=== PATIENT | male | born 1955 | race Caucasian/White ===

== ENCOUNTER → 2016-08-02 | Outpatient (CLI) | payer OTHER ==
[2014-01-12 14:26] VITALS: BP 115/69
[~2016-08-02] MED LIST: ESCI10TA PO; IPRA4AER IH; PALI9TAB PO; VENTOLIN HFA18 GM INH
--- NOTE | 2016-08-02 16:35 | RAD ---
Deep Doppler renal ultrasound, 08/02/2016: History: Hypertension Duplex evaluation of the main main renal arteries was performed including grayscale, color-flow and spectral Doppler analysis. On the right there is a borderline elevated peak systolic velocity 182 cm/s in the mid renal artery. The Doppler waveform at and distal to this level demonstrates a good systolic upstroke. No parvus/tardus phenomena is seen to suggest significant stenosis. The peak systolic velocity in the left renal artery is 128 cm/s. The renal artery to aortic velocity ratio on the right is 2.4 and on the left is 1.7. These values are in the normal range. The right kidney measures 11.5 cm in length while the left kidney measures 11.9 cm. IMPRESSION: No duplex findings to suggest high-grade renal artery stenosis.
== END | disposition home or self-care (01) ==
LOC: US 15:23
PROVIDERS: ATTEND Family Medicine
DX: I10 Essential (primary) hypertension (principal)
CPT/HCPCS: 93975

== ENCOUNTER 2016-09-05 14:51 | Inpatient (IN) | payer MEDICAID, OTHER ==
[~2016-09-05] VITALS: Ht 180.3 cm; Wt 75.4 kg
[2016-09-05 15:25] LABS: BILIRUBIN,URINE NEGATIVE (NEG); GLUCOSE,URINE NEGATIVE (NEG); NITRITE,URINE NEGATIVE (NEG); PROTEIN,URINE NEGATIVE (NEG-TRACE)
[2016-09-05] MEDS: NITROGLYCERIN SUBLINGUAL 0.4 MG BOTTLE OF 25. SL PRN ×3 (15:25→15:47)
--- NOTE | 2016-09-05 15:29 | ED.ADGEN ---
Past Medical History Past Medical History: Constipation, COPD, Depression, High Cholesterol, Hypertension, Schizophrenia Past Surgical History: Other Additional Past Surgical Histo: CARDIAC STENTS Additional Information: SMOKES 6 CIGS A DAY Alcohol Use: Sober Drug Use: None Adult General Chief Complaint Chief Complaint: ABDOMINAL PAIN HPI HPI Patient is a 61 year old male presents emergency department complaining of chest pain. The patient states that the patient starts underneath the sternum and radiates under both breasts. Patient does have a history of COPD and a previous NM in 2014. He has had his Plavix and aspirin today. He did have some associated dyspnea as well as nausea and vomiting today with the pain. Patient has tried antacids without any relief. He describes it as a "sharp intense" pain. Review of Systems Review of Systems Constitutional: Denies fever or chills. [] Eyes: Denies change in visual acuity. [] HENT: Denies nasal congestion or sore throat. [] Respiratory: Denies cough or shortness of breath. [] Cardiovascular: Denies chest pain or edema. [] GI: Denies abdominal pain, nausea, vomiting, bloody stools or diarrhea. [] : Denies dysuria. [] Musculoskeletal: Denies back pain or joint pain. [] Integument: Denies rash. [] Neurologic: Denies headache, focal weakness or sensory changes. [] Endocrine: Denies polyuria or polydipsia. [] Lymphatic: Denies swollen glands. [] Psychiatric: Denies depression or anxiety. [] Current Medications Current Medications Current Medications Medications (Trade) Dose Ordered Sig/Cuco Start Time Stop Time Status Last Admin Dose Admin Albuterol/ Ipratropium (Duoneb) 3 ml 1X ONCE 09/05/16 16:30 09/05/16 16:31 09/05/16 16:13 3 ML Heparin Sodium (Porcine) 3950 unit 3,950 unit 1X ONCE 09/05/16 16:30 09/05/16 16:31 09/05/16 16:13 3,950 UNIT Heparin Sodium/ Dextrose 500 ml @ 0 mls/hr 1X ONCE 09/05/16 16:30 09/05/16 16:31 09/05/16 16:17 15.8 MLS/HR Nitroglycerin (Nitrostat) 0.4 mg PRN Q5MIN PRN 09/05/16 15:30 09/05/16 15:47 0.4 MG Sodium Chloride (Iv Sodium Chloride 0.9% 1000ml Bag) 1,000 ml @ 1,000 mls/hr Q1H 09/05/16 15:45 09/05/16 16:44 09/05/16 15:33 1,000 MLS/HR Allergies Allergies Allergies Coded Allergies Type Severity Reaction Last Updated Verified No Known Drug Allergies 01/07/14 No Physical Exam Physical Exam Constitutional: Well developed, well nourished, mild to moderate acute distress , non-toxic appearance. [] HENT: Normocephalic, atraumatic, bilateral external ears normal, oropharynx moist, no oral exudates, nose normal. [] Eyes: PERRLA, EOMI, conjunctiva normal, no discharge. [] Neck: Normal range of motion, no tenderness, supple, no stridor. [] Cardiovascular:Heart rate regular rhythm, no murmur [] Lungs & Thorax: Bilateral breath sounds coarse with scattered wheezing [] Abdomen: Bowel sounds normal, soft, no tenderness, no masses, no pulsatile masses. [] Skin: Warm, dry, no erythema, no rash. [] Back: No tenderness, no CVA tenderness. [] Extremities: No tenderness, no cyanosis, no clubbing, ROM intact, no edema. [] Neurologic: Alert and oriented X 3, normal motor function, normal sensory function, no focal deficits noted. [] Psychologic: Affect normal, judgement normal, mood normal. [] Current Patient Data Vital Signs Vital Signs Date Time Temp Pulse Resp B/P Pulse Ox O2 Delivery O2 Flow Rate FiO2 09/05/16 16:14 Room Air 09/05/16 15:47 56 106/59 09/05/16 15:02 97.6 16 97 97.6 Lab Values Laboratory Tests Test 09/05/16 15:00 09/05/16 15:30 Urine Collection Type Void Urine Color Yellow Urine Clarity Clear Urine pH 7.0 Urine Specific [place] 1.025 Urine Protein Negativemg/dL (NEG-TRACE) Urine Glucose (UA) Negativemg/dL (NEG) Urine Ketones (Stick) Negativemg/dL (NEG) Urine Blood Negative (NEG) Urine Nitrite Negative (NEG) Urine Bilirubin Negative (NEG) Urine Urobilinogen Dipstick 1.0mg/dL (0.2 mg/dL) Urine Leukocyte Esterase Trace (NEG) Urine RBC Rare/HPF (0-2) Urine WBC Rare/HPF (0-4) Urine Squamous Epithelial Cells Occ/LPF Urine Bacteria 0/HPF (0-FEW) Urine Mucus Marked/LPF Urine Opiates Screen Neg (NEG) Urine Methadone Screen Neg (NEG) Urine Barbiturates Neg (NEG) Urine Phencyclidine Screen Neg (NEG) Urine Amphetamine/Methamphetamine Neg (NEG) Urine Benzodiazepines Screen Neg (NEG) Urine Cocaine Screen Neg (NEG) Urine Cannabinoids Screen Neg (NEG) Urine Ethyl Alcohol Neg (NEG) White Blood Count 13.1x10^3/uL (4.0-11.0) H Red Blood Count 4.11x10^6/uL (4.30-5.70) L Hemoglobin 9.6g/dL (13.0-17.5) L Hematocrit 30.4% (39.0-53.0) L Mean Corpuscular Volume 74fL (79-100) L Mean Corpuscular Hemoglobin 24pg (25-35) L Mean Corpuscular Hemoglobin Concent 32g/dL (31-37) Red Cell Distribution Width 17.9% (11.5-14.5) H Platelet Count 296x10^3/uL (140-400) Neutrophils (%) (Auto) 82% (31-73) H Lymphocytes (%) (Auto) 8% (24-48) L Monocytes (%) (Auto) 10% (0-9) H Eosinophils (%) (Auto) 0% (0-3) Basophils (%) (Auto) 0% (0-3) Neutrophils # (Auto) 10.7x10^3uL (1.8-7.7) H Lymphocytes # (Auto) 1.0x10^3/uL (1.0-4.8) Monocytes # (Auto) 1.2x10^3/uL (0.0-1.1) H Eosinophils # (Auto) 0.1x10^3/uL (0.0-0.7) Basophils # (Auto) 0.1x10^3/uL (0.0-0.2) Prothrombin Time 12.4SEC (11.7-14.0) Prothrombin Time INR 1.0 (0.8-1.1) PTT 32SEC (24-38) Sodium Level 134mmol/L (136-145) L Potassium Level 4.1mmol/L (3.5-5.1) Chloride Level 101mmol/L (98-107) Carbon Dioxide Level 23mmol/L (21-32) Anion Gap 10 (6-14) Blood Urea Nitrogen 13mg/dL (8-26) Creatinine 0.9mg/dL (0.7-1.3) Estimated GFR (Cockcroft-Gault) 86.1 BUN/Creatinine Ratio 14 (6-20) Glucose Level 106mg/dL (70-99) H Calcium Level 8.4mg/dL (8.5-10.1) L Total Bilirubin 0.3mg/dL (0.2-1.0) Aspartate Amino Transferase (AST) 14U/L (15-37) L Alanine Aminotransferase (ALT) 18U/L (16-63) Alkaline Phosphatase 75U/L (46-116) Creatine Kinase 97U/L (39-308) Creatine Kinase MB (Mass) 2.6ng/mL (0.0-3.6) Creatine Kinase MB Relative Index 2.7% (0-4) Troponin I Quantitative < 0.017ng/mL (0.000-0.055) ND-Rvt-M-Type Natriuretic Peptide 374pg/mL (0-124) H Total Protein 6.9g/dL (6.4-8.2) Albumin 3.2g/dL (3.4-5.0) L Albumin/Globulin Ratio 0.9 (1.0-1.7) L Lipase 193U/L (73-393) Laboratory Tests 09/05/16 15:30 Laboratory Tests 09/05/16 15:30 EKG EKG EKG interpreted by mo, normal sinus rhythm, 59 bpm, no ST segment elevation, normal axis, does have ischemic morphology with inverted T waves in V1 through V4 which may be consistent with his previous LAD occlusion and NM. [] Radiology/Procedures Radiology/Procedures EXAM: Chest, single view. HISTORY: Chest pain. COMPARISON: 01/07/2014. FINDINGS: Frontal views of the chest are obtained. There is severe right greater than left upper lobe predominant bullous emphysema. There is stable linear right perihilar opacity likely due to scarring. There is stable mild cardiomegaly. There is no effusion or pneumothorax. IMPRESSION: 1. Severe right greater left apical predominant bullous emphysema with suspected stable right midlung pleural parenchymal scarring. 2. Mild cardiomegaly. DICTATED and SIGNED BY: ERNIE DIAZ MD DATE: 09/05/16 1538 CC: SHANNAN ARIAS MD; ZAINAB SONI ~[] Course & Med Decision Making Course & Med Decision Making Pertinent Labs and Imaging studies reviewed. (See chart for details) 1530 - Spoke with Dr Child who recommends treating and admitting for unstable angina including heparin gtt. 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 1535 - cp has gone from 6/10 down to 3/10 after 1 ntg 1550 - ntg #2 reduced pain to 2/10; ntg #3 reduced pain to 1/10 1620 - Reassuring work up this far. Call to Dr. Gomez regarding admission Dragon Disclaimer Dragon Disclaimer This electronic medical record was generated, in whole or in part, using a voice recognition dictation system. SHANNAN ARIAS MD Sep 05, 2016 15:29
[2016-09-05 15:30] LABS: BARBITURATES NEG (NEG); BENZODIAZEPINES NEG (NEG); CANNABINOIDS NEG (NEG); COCAINE NEG (NEG); METHADONE NEG (NEG); OPIATES NEG (NEG); PHENCYCLIDINE NEG (NEG)
[2016-09-05 15:33] LABS: BACTERIA,URINE 0 /HPF (0-FEW); RBC,URINE RARE /HPF (0-2); SQUAMOUS EPITHELIAL CELL,UR OCC /LPF; WBC,URINE RARE /HPF (0-4)
[2016-09-05 15:35] LABS: ETHANOL, URINE NEG (NEG)
--- NOTE | 2016-09-05 15:42 | RAD ---
EXAM: Chest, single view. HISTORY: Chest pain. COMPARISON: 01/07/2014. FINDINGS: Frontal views of the chest are obtained. There is severe right greater than left upper lobe predominant bullous emphysema. There is stable linear right perihilar opacity likely due to scarring. There is stable mild cardiomegaly. There is no effusion or pneumothorax. IMPRESSION: 1. Severe right greater left apical predominant bullous emphysema with suspected stable right midlung pleural parenchymal scarring. 2. Mild cardiomegaly.
[2016-09-05] MEDS ORDERED: IV NORMAL SALINE 1000ML BAG 1,000 ML IV SCH (15:45)
[2016-09-05 15:49] LABS: BASO # 0.1 x10^3/uL (0.0-0.2); BASO % 0 % (0-3); EOS % 0 % (0-3); HEMATOCRIT 30.4 % (39.0-53.0); HEMOGLOBIN 9.6 g/dL (13.0-17.5); LYMPH % 8 % (24-48); MEAN CORPUSCULAR HEMOGLOBIN 24 pg (25-35); MEAN CORPUSCULAR HGB CONC 32 g/dL (31-37); MEAN CORPUSCULAR VOLUME 74 fL (79-100); MONO % 10 % (0-9); NEUT % 82 % (31-73); PLATELET COUNT 296 x10^3/uL (140-400); RED BLOOD COUNT 4.11 x10^6/uL (4.30-5.70); RED CELL DISTRIBUTION WIDTH 17.9 % (11.5-14.5); WHITE BLOOD COUNT 13.1 x10^3/uL (4.0-11.0)
[2016-09-05 15:56] LABS: PROTHROMBIN TIME PATIENT 12.4 SEC (11.7-14.0)
[2016-09-05 16:04] LABS: CALCIUM 8.4 mg/dL (8.5-10.1); CREATININE 0.9 mg/dL (0.7-1.3); GFR 86.1; POTASSIUM 4.1 mmol/L (3.5-5.1)
[2016-09-05 16:10] LABS: ALBUMIN 3.2 g/dL (3.4-5.0); ALBUMIN/GLOBULIN RATIO 0.9 (1.0-1.7); TOTAL BILIRUBIN 0.3 mg/dL (0.2-1.0); TOTAL PROTEIN 6.9 g/dL (6.4-8.2)
[2016-09-05 16:19] LABS: CKMB INDEX 2.7 % (0-4); CKMB MASS 2.6 ng/mL (0.0-3.6)
[2016-09-05] MEDS ORDERED: IPRATRPIUM/ALBUTEROL 0.5/2.5MG 3 ML NEBU. NEB ONE (16:30)
[2016-09-05] MEDS ORDERED: HEPARIN 25,000UTS/500ML PREMIX 500 ML IV ONE (16:30)
[2016-09-05] MEDS ORDERED: ALBUTEROL SULFATE 2.5 MG/3 ML NEBU. NEB PRN ×2 (16:30→19:45)
[2016-09-05] MEDS ORDERED: ONDANSETRON PF 4 MG/2 ML VIAL. IV PRN (16:30)
[2016-09-05] MEDS ORDERED: HEPARIN for IV BOLUS 10,000 UNIT/10 ML VIAL. IV ONE (16:30)
[2016-09-05] MEDS: IV NORMAL SALINE 1000ML BAG 1,000 ML IV SCH (16:46)
[2016-09-05 17:45] VITALS: BP 124/62
--- NOTE | 2016-09-05 17:46 | EKG ---
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
[2016-09-05] MEDS ORDERED: MORPHINE SULFATE 2 MG/ML DISP.SYRIN. IV PRN (18:45)
[2016-09-05] MEDS ORDERED: LIDO:MAALOX:DONNATAL 1:1:1 15 ML SINGLE DOSE SWSW ONE (19:00)
--- NOTE | 2016-09-05 19:24 | EKG ---
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
[2016-09-05 19:45] VITALS: BP 139/68
[2016-09-05] MEDS ORDERED: ATOR20TA PO (20:34)
[2016-09-05] MEDS ORDERED: POTA20TA82 PO (20:34)
[2016-09-05] MEDS ORDERED: CLOP75TA PO (20:34)
[2016-09-05] MEDS ORDERED: ESCI10TA PO (20:34)
[2016-09-05] MEDS ORDERED: IPRA4AER IH (20:34)
[2016-09-05] MEDS ORDERED: AMIO200T2 PO (20:34)
[2016-09-05] MEDS ORDERED: ASPI325T70 PO (20:34)
[2016-09-05] MEDS ORDERED: FLUT1DIS3 IH (20:34)
[2016-09-05] MEDS ORDERED: POLY17PO5 PO (20:34)
[2016-09-05] MEDS ORDERED: ACET650S19 PO (20:34)
[2016-09-05] MEDS: IPRATRPIUM/ALBUTEROL 0.5/2.5MG 3 ML NEBU. NEB SCH (20:59)
[2016-09-05] MEDS ORDERED: NON FORMULARY ITEM (Ipratropium/Albuterol Sulfate (Combivent Respimat Inhal) 1 INH) IH SCH (21:00)
--- NOTE | 2016-09-05 21:44 | HP ---
ADMIT DATE: 09/05/2016 CHIEF COMPLAINT: Abdominal pain and chest pain. HISTORY OF PRESENT ILLNESS: The patient is a pleasant middle-aged male, who resides at [facility] and ____ apparently is on a Psych Unit, though he does have schizophrenia, basically presented today with abdominal pain and chest pain, rates it 12/13. He tried increasing his home meds, but that was not working. I discussed the case with the ER physician. The patient apparently does have coronary artery disease, has 2 stents. I am going to go ahead and admit him and check serial enzymes, serial EKGs and consult cardiology. PAST MEDICAL HISTORY: Schizophrenia, hypertension, coronary artery disease with 2 stents, depression, COPD, constipation and tobacco abuse. ALLERGIES: None. FAMILY HISTORY: Coronary artery disease. SOCIAL HISTORY: He lives in a facility. He smokes 6 cigarettes a day. He does not drink or take drugs. MEDICATIONS: Reviewed, please refer to the MRAD. REVIEW OF SYSTEMS: GENERAL: No history of weight change, weakness or fevers. SKIN: No bruising, hair changes or rashes. EYES: No blurred, double or loss of vision. NOSE AND THROAT: No history of nosebleeds, hoarseness or sore throat. HEART: He complaints of chest pain. LUNGS: Denies cough, hemoptysis, wheezing or shortness of breath. GASTROINTESTINAL: Denies changes in appetite, nausea, vomiting, diarrhea or constipation. GENITOURINARY: No history of frequency, urgency, hesitancy or nocturia. NEUROLOGIC: Denies history of numbness, tingling, tremor or weakness. PSYCHIATRIC: No history of panic, anxiety or depression. ENDOCRINE: No history of heat or cold intolerance, polyuria or polydipsia. EXTREMITIES: Denies muscle weakness, joint pain, pain on walking or stiffness. PHYSICAL EXAMINATION: VITAL SIGNS: Temperature afebrile, pulse 68, respirations 21, blood pressure 144/91. GENERAL: He is alert, cooperative. HEART: Normal S1, S2. LUNGS: Clear. ABDOMEN: Soft. EXTREMITIES: No edema. SKIN: No rashes. PSYCHIATRIC: He is anxious. VASCULAR: Good capillary refill. ENDOCRINE: No thyromegaly. LYMPHATICS: No cervical nodes. HEMATOPOIETIC: No bruising. LABORATORY DATA: Urinalysis negative. Troponin is 0. White count 13, hemoglobin 9, platelets 296. Electrolytes: Sodium 134, potassium 4.1, chloride 101, bicarbonate 23, BUN 13, creatinine 0.9, glucose 106. ASSESSMENT AND PLAN: Chest pain, rule out recurrent coronary artery disease. The patient has been admitted. We will check serial enzymes, serial EKGs, echocardiogram, consult cardiology. Suspect will need a stress test tomorrow. For now, we will give him daily aspirin, resume his home medicines. PROGNOSIS: Guarded. CARY GRAY DO DR: REGINE/melida JOB#: [id number] / [id number]
[2016-09-05] MEDS: risperiDONE 1 MG TABLET. PO SCH (22:40)
[2016-09-05 23:45] VITALS: BP 112/57
[2016-09-06] MEDS: IV NORMAL SALINE 1000ML BAG 1,000 ML IV SCH ×2 (01:16→08:25)
[2016-09-06] MEDS ORDERED: HEPARIN for IV BOLUS 10,000 UNIT/10 ML VIAL. IV PRN (02:00)
[2016-09-06] MEDS: HEPARIN 25,000UTS/500ML PREMIX 500 ML IV PRN ×2 (02:32→17:35)
[2016-09-06 03:05] VITALS: BP 116/62
[2016-09-06 06:38] LABS: HEMATOCRIT 27.7 % (39.0-53.0); HEMOGLOBIN 8.8 g/dL (13.0-17.5); RED BLOOD COUNT 3.69 x10^6/uL (4.30-5.70); WHITE BLOOD COUNT 9.6 x10^3/uL (4.0-11.0)
[2016-09-06 07:59] VITALS: BP 115/55
[2016-09-06] MEDS ORDERED: ONDANSETRON PF 4 MG/2 ML VIAL. IV PRN (08:13)
[2016-09-06] MEDS ORDERED: POLYETHYLENE GLYCOL 3350 17 GM PACKET. PO PRN (08:15)
[2016-09-06] MEDS ORDERED: ACETAMINOPHEN 500 MG TABLET PO PRN (08:15)
[2016-09-06] MEDS: IPRATRPIUM/ALBUTEROL 0.5/2.5MG 3 ML NEBU. NEB SCH ×4 (08:18→19:56)
[2016-09-06] MEDS: POTASSIUM CHLORIDE 20 MEQ TABLET.ER. PO SCH ×4 (09:00→16:56)
[2016-09-06] MEDS: BUDESONIDE 0.5 MG/2 ML NEBU. NEB SCH ×2 (09:00→19:56)
[2016-09-06] MEDS ORDERED: NON FORMULARY ITEM (Fluticasone/Salmeterol (Advair 250-50 Diskus) 1 PUFF) IH SCH (09:00)
[2016-09-06] MEDS ORDERED: POTASSIUM CHLORIDE 20 MEQ TABLET.ER. PO ONE ×2 (09:00)
[2016-09-06] MEDS ORDERED: NON FORMULARY ITEM (Ipratropium/Albuterol Sulfate (Combivent Respimat Inhal) 2 INH) IH SCH (09:00)
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
[2016-09-06] MEDS ORDERED: SULFUR HEXAFLUORIDE MICROSPHR 25 MG VIAL. IVP ONE ×2 (11:08→11:45)
--- NOTE | 2016-09-06 11:23 | PDOC ---
PROGRESS NOTES Chief Complaint Chief Complaint 1. chest pain, atypical 2. CAD with previous STEMI occluded LAD with 2 RUY to LAD 3. PAF on amiodarone 4. hypertension 5. HLD 6. paranoid schizophrenia History of Present Illness History of Present Illness Still some chest pains and points to bilateral ribs Heparin gt running Trops neg VS ok PLAnned to TTE then MPI today PLAN: TTE and mPI Rsume home meds Dw pt and RN Vitals Vitals Vital Signs Date Time Temp Pulse Resp B/P Pulse Ox O2 Delivery O2 Flow Rate FiO2 09/06/16 08:19 95 Room Air 09/06/16 07:59 97.8 70 20 115/55 97.8 Physical Exam General: Alert, Cooperative Heart: Regular rate, Normal S1, Normal S2 Lungs: Clear, Other Abdomen: Normal bowel sounds, Soft Extremities: No edema, Normal pulses Labs LABS Laboratory Tests Test 09/05/16 15:00 09/05/16 15:30 09/05/16 21:00 09/06/16 01:10 Urine Collection Type Void Urine Color Yellow Urine Clarity Clear Urine pH 7.0 Urine Specific [place] 1.025 Urine Protein Negativemg/dL (NEG-TRACE) Urine Glucose (UA) Negativemg/dL (NEG) Urine Ketones (Stick) Negativemg/dL (NEG) Urine Blood Negative (NEG) Urine Nitrite Negative (NEG) Urine Bilirubin Negative (NEG) Urine Urobilinogen Dipstick 1.0mg/dL (0.2 mg/dL) Urine Leukocyte Esterase Trace (NEG) Urine RBC Rare/HPF (0-2) Urine WBC Rare/HPF (0-4) Urine Squamous Epithelial Cells Occ/LPF Urine Bacteria 0/HPF (0-FEW) Urine Mucus Marked/LPF Urine Opiates Screen Neg (NEG) Urine Methadone Screen Neg (NEG) Urine Barbiturates Neg (NEG) Urine Phencyclidine Screen Neg (NEG) Urine Amphetamine/Methamphetamine Neg (NEG) Urine Benzodiazepines Screen Neg (NEG) Urine Cocaine Screen Neg (NEG) Urine Cannabinoids Screen Neg (NEG) Urine Ethyl Alcohol Neg (NEG) White Blood Count 13.1x10^3/uL (4.0-11.0) Red Blood Count 4.11x10^6/uL (4.30-5.70) Hemoglobin 9.6g/dL (13.0-17.5) Hematocrit 30.4% (39.0-53.0) Mean Corpuscular Volume 74fL (79-100) Mean Corpuscular Hemoglobin 24pg (25-35) Mean Corpuscular Hemoglobin Concent 32g/dL (31-37) Red Cell Distribution Width 17.9% (11.5-14.5) Platelet Count 296x10^3/uL (140-400) Neutrophils (%) (Auto) 82% (31-73) Lymphocytes (%) (Auto) 8% (24-48) Monocytes (%) (Auto) 10% (0-9) Eosinophils (%) (Auto) 0% (0-3) Basophils (%) (Auto) 0% (0-3) Neutrophils # (Auto) 10.7x10^3uL (1.8-7.7) Lymphocytes # (Auto) 1.0x10^3/uL (1.0-4.8) Monocytes # (Auto) 1.2x10^3/uL (0.0-1.1) Eosinophils # (Auto) 0.1x10^3/uL (0.0-0.7) Basophils # (Auto) 0.1x10^3/uL (0.0-0.2) Prothrombin Time 12.4SEC (11.7-14.0) Prothromb Time International Ratio 1.0 (0.8-1.1) Activated Partial Thromboplast Time 32SEC (24-38) Sodium Level 134mmol/L (136-145) Potassium Level 4.1mmol/L (3.5-5.1) Chloride Level 101mmol/L (98-107) Carbon Dioxide Level 23mmol/L (21-32) Anion Gap 10 (6-14) Blood Urea Nitrogen 13mg/dL (8-26) Creatinine 0.9mg/dL (0.7-1.3) Estimated GFR (Cockcroft-Gault) 86.1 BUN/Creatinine Ratio 14 (6-20) Glucose Level 106mg/dL (70-99) Calcium Level 8.4mg/dL (8.5-10.1) Total Bilirubin 0.3mg/dL (0.2-1.0) Aspartate Amino Transf (AST/SGOT) 14U/L (15-37) Alanine Aminotransferase (ALT/SGPT) 18U/L (16-63) Alkaline Phosphatase 75U/L (46-116) Creatine Kinase 97U/L (39-308) Creatine Kinase MB (Mass) 2.6ng/mL (0.0-3.6) Creatine Kinase MB Relative Index 2.7% (0-4) Troponin I Quantitative < 0.017ng/mL (0.000-0.055) < 0.017ng/mL (0.000-0.055) SU-Hmd-I-Type Natriuretic Peptide 374pg/mL (0-124) Total Protein 6.9g/dL (6.4-8.2) Albumin 3.2g/dL (3.4-5.0) Albumin/Globulin Ratio 0.9 (1.0-1.7) Lipase 193U/L (73-393) Heparin Anti-Xa Act, Unfractionated 0.15IU/mL (0.30-0.70) Test 09/06/16 04:15 09/06/16 04:25 09/06/16 06:45 Troponin I Quantitative < 0.017ng/mL (0.000-0.055) White Blood Count 9.6x10^3/uL (4.0-11.0) Red Blood Count 3.69x10^6/uL (4.30-5.70) Hemoglobin 8.8g/dL (13.0-17.5) Hematocrit 27.7% (39.0-53.0) Mean Corpuscular Volume 75fL (79-100) Mean Corpuscular Hemoglobin 24pg (25-35) Mean Corpuscular Hemoglobin Concent 32g/dL (31-37) Red Cell Distribution Width 18.0% (11.5-14.5) Platelet Count 247x10^3/uL (140-400) Heparin Anti-Xa Act, Unfractionated 0.39IU/mL (0.30-0.70) Review of Systems Review of Systems chest pains, abd pains, no n.v d Assessment and Plan Assessmemt and Plan Problems Medical Problems: (1) COPD (chronic obstructive pulmonary disease) Status: Acute (2) HTN (hypertension) Status: Acute (3) Hypertension Status: Acute (4) Schizophrenia Status: Acute (5) Unstable angina Status: Acute Problems: Comment Review of Relevant I have reviewed the following items parviz (where applicable) has been applied. Labs Laboratory Tests Test 09/05/16 15:00 09/05/16 15:30 09/05/16 21:00 09/06/16 01:10 Urine Collection Type Void Urine Color Yellow Urine Clarity Clear Urine pH 7.0 Urine Specific [place] 1.025 Urine Protein Negativemg/dL (NEG-TRACE) Urine Glucose (UA) Negativemg/dL (NEG) Urine Ketones (Stick) Negativemg/dL (NEG) Urine Blood Negative (NEG) Urine Nitrite Negative (NEG) Urine Bilirubin Negative (NEG) Urine Urobilinogen Dipstick 1.0mg/dL (0.2 mg/dL) Urine Leukocyte Esterase Trace (NEG) Urine RBC Rare/HPF (0-2) Urine WBC Rare/HPF (0-4) Urine Squamous Epithelial Cells Occ/LPF Urine Bacteria 0/HPF (0-FEW) Urine Mucus Marked/LPF Urine Opiates Screen Neg (NEG) Urine Methadone Screen Neg (NEG) Urine Barbiturates Neg (NEG) Urine Phencyclidine Screen Neg (NEG) Urine Amphetamine/Methamphetamine Neg (NEG) Urine Benzodiazepines Screen Neg (NEG) Urine Cocaine Screen Neg (NEG) Urine Cannabinoids Screen Neg (NEG) Urine Ethyl Alcohol Neg (NEG) White Blood Count 13.1x10^3/uL (4.0-11.0) Red Blood Count 4.11x10^6/uL (4.30-5.70) Hemoglobin 9.6g/dL (13.0-17.5) Hematocrit 30.4% (39.0-53.0) Mean Corpuscular Volume 74fL (79-100) Mean Corpuscular Hemoglobin 24pg (25-35) Mean Corpuscular Hemoglobin Concent 32g/dL (31-37) Red Cell Distribution Width 17.9% (11.5-14.5) Platelet Count 296x10^3/uL (140-400) Neutrophils (%) (Auto) 82% (31-73) Lymphocytes (%) (Auto) 8% (24-48) Monocytes (%) (Auto) 10% (0-9) Eosinophils (%) (Auto) 0% (0-3) Basophils (%) (Auto) 0% (0-3) Neutrophils # (Auto) 10.7x10^3uL (1.8-7.7) Lymphocytes # (Auto) 1.0x10^3/uL (1.0-4.8) Monocytes # (Auto) 1.2x10^3/uL (0.0-1.1) Eosinophils # (Auto) 0.1x10^3/uL (0.0-0.7) Basophils # (Auto) 0.1x10^3/uL (0.0-0.2) Prothrombin Time 12.4SEC (11.7-14.0) Prothromb Time International Ratio 1.0 (0.8-1.1) Activated Partial Thromboplast Time 32SEC (24-38) Sodium Level 134mmol/L (136-145) Potassium Level 4.1mmol/L (3.5-5.1) Chloride Level 101mmol/L (98-107) Carbon Dioxide Level 23mmol/L (21-32) Anion Gap 10 (6-14) Blood Urea Nitrogen 13mg/dL (8-26) Creatinine 0.9mg/dL (0.7-1.3) Estimated GFR (Cockcroft-Gault) 86.1 BUN/Creatinine Ratio 14 (6-20) Glucose Level 106mg/dL (70-99) Calcium Level 8.4mg/dL (8.5-10.1) Total Bilirubin 0.3mg/dL (0.2-1.0) Aspartate Amino Transf (AST/SGOT) 14U/L (15-37) Alanine Aminotransferase (ALT/SGPT) 18U/L (16-63) Alkaline Phosphatase 75U/L (46-116) Creatine Kinase 97U/L (39-308) Creatine Kinase MB (Mass) 2.6ng/mL (0.0-3.6) Creatine Kinase MB Relative Index 2.7% (0-4) Troponin I Quantitative < 0.017ng/mL (0.000-0.055) < 0.017ng/mL (0.000-0.055) DK-Yfp-A-Type Natriuretic Peptide 374pg/mL (0-124) Total Protein 6.9g/dL (6.4-8.2) Albumin 3.2g/dL (3.4-5.0) Albumin/Globulin Ratio 0.9 (1.0-1.7) Lipase 193U/L (73-393) Heparin Anti-Xa Act, Unfractionated 0.15IU/mL (0.30-0.70) Test 09/06/16 04:15 09/06/16 04:25 09/06/16 06:45 Troponin I Quantitative < 0.017ng/mL (0.000-0.055) White Blood Count 9.6x10^3/uL (4.0-11.0) Red Blood Count 3.69x10^6/uL (4.30-5.70) Hemoglobin 8.8g/dL (13.0-17.5) Hematocrit 27.7% (39.0-53.0) Mean Corpuscular Volume 75fL (79-100) Mean Corpuscular Hemoglobin 24pg (25-35) Mean Corpuscular Hemoglobin Concent 32g/dL (31-37) Red Cell Distribution Width 18.0% (11.5-14.5) Platelet Count 247x10^3/uL (140-400) Heparin Anti-Xa Act, Unfractionated 0.39IU/mL (0.30-0.70) Laboratory Tests Test 09/05/16 15:00 09/05/16 15:30 09/05/16 21:00 09/06/16 01:10 Urine Collection Type Void Urine Color Yellow Urine Clarity Clear Urine pH 7.0 Urine Specific [place] 1.025 Urine Protein Negativemg/dL (NEG-TRACE) Urine Glucose (UA) Negativemg/dL (NEG) Urine Ketones (Stick) Negativemg/dL (NEG) Urine Blood Negative (NEG) Urine Nitrite Negative (NEG) Urine Bilirubin Negative (NEG) Urine Urobilinogen Dipstick 1.0mg/dL (0.2 mg/dL) Urine Leukocyte Esterase Trace (NEG) Urine RBC Rare/HPF (0-2) Urine WBC Rare/HPF (0-4) Urine Squamous Epithelial Cells Occ/LPF Urine Bacteria 0/HPF (0-FEW) Urine Mucus Marked/LPF Urine Opiates Screen Neg (NEG) Urine Methadone Screen Neg (NEG) Urine Barbiturates Neg (NEG) Urine Phencyclidine Screen Neg (NEG) Urine Amphetamine/Methamphetamine Neg (NEG) Urine Benzodiazepines Screen Neg (NEG) Urine Cocaine Screen Neg (NEG) Urine Cannabinoids Screen Neg (NEG) Urine Ethyl Alcohol Neg (NEG) White Blood Count 13.1x10^3/uL (4.0-11.0) Red Blood Count 4.11x10^6/uL (4.30-5.70) Hemoglobin 9.6g/dL (13.0-17.5) Hematocrit 30.4% (39.0-53.0) Mean Corpuscular Volume 74fL (79-100) Mean Corpuscular Hemoglobin 24pg (25-35) Mean Corpuscular Hemoglobin Concent 32g/dL (31-37) Red Cell Distribution Width 17.9% (11.5-14.5) Platelet Count 296x10^3/uL (140-400) Neutrophils (%) (Auto) 82% (31-73) Lymphocytes (%) (Auto) 8% (24-48) Monocytes (%) (Auto) 10% (0-9) Eosinophils (%) (Auto) 0% (0-3) Basophils (%) (Auto) 0% (0-3) Neutrophils # (Auto) 10.7x10^3uL (1.8-7.7) Lymphocytes # (Auto) 1.0x10^3/uL (1.0-4.8) Monocytes # (Auto) 1.2x10^3/uL (0.0-1.1) Eosinophils # (Auto) 0.1x10^3/uL (0.0-0.7) Basophils # (Auto) 0.1x10^3/uL (0.0-0.2) Prothrombin Time 12.4SEC (11.7-14.0) Prothromb Time International Ratio 1.0 (0.8-1.1) Activated Partial Thromboplast Time 32SEC (24-38) Sodium Level 134mmol/L (136-145) Potassium Level 4.1mmol/L (3.5-5.1) Chloride Level 101mmol/L (98-107) Carbon Dioxide Level 23mmol/L (21-32) Anion Gap 10 (6-14) Blood Urea Nitrogen 13mg/dL (8-26) Creatinine 0.9mg/dL (0.7-1.3) Estimated GFR (Cockcroft-Gault) 86.1 BUN/Creatinine Ratio 14 (6-20) Glucose Level 106mg/dL (70-99) Calcium Level 8.4mg/dL (8.5-10.1) Total Bilirubin 0.3mg/dL (0.2-1.0) Aspartate Amino Transf (AST/SGOT) 14U/L (15-37) Alanine Aminotransferase (ALT/SGPT) 18U/L (16-63) Alkaline Phosphatase 75U/L (46-116) Creatine Kinase 97U/L (39-308) Creatine Kinase MB (Mass) 2.6ng/mL (0.0-3.6) Creatine Kinase MB Relative Index 2.7% (0-4) Troponin I Quantitative < 0.017ng/mL (0.000-0.055) < 0.017ng/mL (0.000-0.055) PK-Kkf-F-Type Natriuretic Peptide 374pg/mL (0-124) Total Protein 6.9g/dL (6.4-8.2) Albumin 3.2g/dL (3.4-5.0) Albumin/Globulin Ratio 0.9 (1.0-1.7) Lipase 193U/L (73-393) Heparin Anti-Xa Act, Unfractionated 0.15IU/mL (0.30-0.70) Test 09/06/16 04:15 09/06/16 04:25 09/06/16 06:45 Troponin I Quantitative < 0.017ng/mL (0.000-0.055) White Blood Count 9.6x10^3/uL (4.0-11.0) Red Blood Count 3.69x10^6/uL (4.30-5.70) Hemoglobin 8.8g/dL (13.0-17.5) Hematocrit 27.7% (39.0-53.0) Mean Corpuscular Volume 75fL (79-100) Mean Corpuscular Hemoglobin 24pg (25-35) Mean Corpuscular Hemoglobin Concent 32g/dL (31-37) Red Cell Distribution Width 18.0% (11.5-14.5) Platelet Count 247x10^3/uL (140-400) Heparin Anti-Xa Act, Unfractionated 0.39IU/mL (0.30-0.70) Medications Current Medications Sodium Chloride (Iv Sodium Chloride 0.9% 1000ml Bag) 1,000 ml @ 1,000 mls/hr Q1H IV Last administered on 09/05/16 15:33; Start 09/05/16 at 15:45; Stop at 16:44; Status DC Nitroglycerin (Nitrostat) 0.4 mg PRN Q5MIN PRN SL CHEST PAIN Last administered on 09/05/16 15:47; Start 09/05/16 at 15:30 Heparin Sodium (Porcine) 3950 unit 3,950 unit 1X ONCE IV Last administered on 09/05/16 16:13; Start 09/05/16 at 16:30; Stop 09/05/16 at 16:32; Status DC Heparin Sodium/ Dextrose 500 ml @ 0 mls/hr 1X ONCE IV Last administered on 09/05 16:17; Start 09/05/16 at 16:30; Stop 09/05/16 at 16:32; Status DC Albuterol/ Ipratropium (Duoneb) 3 ml 1X ONCE NEB Last administered on 16:13; Start 09/05/16 at 16:30; Stop 09/05/16 at 16:32; Status DC Ondansetron HCl 4 mg 4 mg PRN Q8HRS PRN IV NAUSEA/VOMITING; Start 09/05/16 at 16 :30; Stop 09/06/16 at 08:16; Status DC Sodium Chloride (Iv Sodium Chloride 0.9% 1000ml Bag) 1,000 ml @ 125 mls/hr Q8H IV Last administered on 09/06/16 01:16; Start 09/05/16 at 16:25; Stop 09/06/16 at 16:24 Albuterol Sulfate (Ventolin Neb Soln) 2.5 mg RTQID PRN NEB SHORTNESS OF BREATH ; Start 09/05/16 at 16:30; Stop 09/06/16 at 16:29 Multi-Ingredient Mouthwash/Gargle (Gi Cocktail Single Dose) 15 ml 1X ONCE SWSW Last administered on 09/05/16 20:06; Start 09/05/16 at 19:00; Stop 09/05/16 at 19:01; Status DC Morphine Sulfate 2 mg PRN Q2HR PRN IV PAIN; Start 09/05/16 at 18:45 Albuterol Sulfate (Ventolin Neb Soln) 2.5 mg PRN BID PRN NEB SHORTNESS OF BREATH; Start 09/05/16 at 19:45; Stop 09/06/16 at 08:30; Status DC Non-Formulary Medication 1 inh BID IH ; Start 09/05/16 at 21:00; Status UNV Risperidone (Risperdal) 6 mg BID PO Last administered on 09/05/16 22:40; Start 09/05/16 at 21:00 Albuterol/ Ipratropium 3 ml 3 ml RTBID NEB Last administered on 09/06/16 08:18 ; Start 09/05/16 at 20:00; Stop 09/06/16 at 08:34; Status DC Heparin Sodium/ Dextrose 500 ml @ 0 mls/hr CONT PRN IV SEE I/O RECORD Last administered on 09/06/16 02:32; Start 09/06/16 at 02:00 Heparin Sodium (Porcine) (Heparin Sodium) 1,900 unit PRN Q6HRS PRN IV FOR UFH LEVEL LESS THAN 0.2 Last administered on 09/06/16 02:24; Start 09/06/16 at 02:00 Ondansetron HCl (Zofran) 4 mg PRN Q6HRS PRN IV NAUSEA/VOMITING; Start 09/06/16 at 08:13 Acetaminophen (Tylenol) 500 mg PRN Q6HRS PRN PO MILD PAIN / TEMP; Start at 08:15 Amiodarone HCl (Cordarone) 200 mg DAILY PO ; Start 09/06/16 at 09:00 Atorvastatin Calcium (Lipitor) 20 mg HS PO ; Start 09/06/16 at 21:00 Clopidogrel Bisulfate (Plavix) 75 mg DAILY PO ; Start 09/06/16 at 09:00 Escitalopram Oxalate (Lexapro) 10 mg DAILY PO ; Start 09/06/16 at 09:00 Polyethylene Glycol (miraLAX PACKET) 17 gm PRN DAILY PRN PO CONSTIPATION; Start 09/06/16 at 08:15 Non-Formulary Medication 1 puff BID IH ; Start 09/06/16 at 09:00; Status UNV Non-Formulary Medication 2 inh BID IH ; Start 09/06/16 at 09:00; Status UNV Potassium Chloride (Klor-Con) 20 meq TIDAC PO ; Start 09/06/16 at 09:00 Aspirin (Russ Aspirin) 325 mg DAILYWBKFT PO ; Start 09/06/16 at 08:00 Albuterol/ Ipratropium (Duoneb) 3 ml RTQID NEB ; Start 09/06/16 at 12:00 Budesonide (Pulmicort) 0.5 mg RTBID NEB ; Start 09/06/16 at 09:00 Sulfur Hexafluoride Microspheres (Lumason) 25 mg STK-MED ONCE IVP ; Start at 11:08; Stop 09/06/16 at 11:09; Status DC Active Scripts Active Reported Potassium Chloride 20 Meq Tablet.er 20 Meq PO TIDAC Miralax (Polyethylene Glycol 3350) 17 Gm Powd.pack 1 Packet PO PRN DAILY PRN Lipitor (Atorvastatin Calcium) 20 Mg Tablet 20 Mg PO HS Escitalopram Oxalate 10 Mg Tablet 1 Tab PO DAILY Combivent Respimat Inhal (Ipratropium/Albuterol Sulfate) 4 Gm Aer.w.adap 2 Inh IH BID Advair 250-50 Diskus (Fluticasone/Salmeterol) 1 Each Disk.w.dev 1 Puff IH BID Acetaminophen 650 Mg/20.3 Ml Solution 650 Mg PO PRN Q4HRS PRN Clopidogrel (Clopidogrel Bisulfate) 75 Mg Tablet 1 Tab PO DAILY Amiodarone Hcl 200 Mg Tablet 1 Tab PO DAILY Aspirin Buffered 325 Mg Tab (Aspirin/Calcium Carbonate/Mag) 325 Mg Tablet 325 Mg PO Ventolin Hfa Inhaler (Albuterol Sulfate) 18 Gm Hfa.aer.ad 2 Puff INH BID Escitalopram Oxalate 10 Mg Tablet 10 Mg PO DAILY Invega (Paliperidone) 9 Mg Tab.er.24 12 Mg PO DAILY Combivent Respimat Inhal (Ipratropium/Albuterol Sulfate) 4 Gm Aer.w.adap 1 Inh IH BID Vitals/I & O Vital Sign - Last 24 Hours 09/05/16 09/05/16 09/05/16 09/05/16 14:56 15:02 15:25 15:26 Temp 97.6 97.6 Pulse 61 60 58 70 Resp 16 16 18 B/P 149/70 149/70 149/70 134/70 Pulse Ox 97 97 97 O2 Delivery Room Air Room Air Room Air 09/05/16 09/05/16 09/05/16 09/05/16 15:34 15:45 15:47 15:56 Pulse 59 58 56 57 Resp 20 18 B/P 134/70 106/59 106/59 107/55 Pulse Ox 97 95 O2 Delivery Room Air Room Air 09/05/16 09/05/16 09/05/16 09/05/16 16:14 16:26 17:45 18:07 Temp 98.1 98.1 Pulse 59 59 Resp 20 20 B/P 128/62 124/62 Pulse Ox 95 97 O2 Delivery Room Air Room Air Room Air Room Air 09/05/16 09/05/16 09/05/16 09/05/16 19:45 20:00 20:59 23:45 Temp 98.6 98.4 98.6 98.4 Pulse 68 79 Resp 20 22 B/P 139/68 112/57 Pulse Ox 97 97 93 O2 Delivery Room Air Room Air Room Air Room Air 09/06/16 09/06/16 09/06/16 09/06/16 03:05 07:59 08:00 08:19 Temp 98.2 97.8 98.2 97.8 Pulse 80 70 Resp 18 20 B/P 116/62 115/55 Pulse Ox 94 89 95 O2 Delivery Room Air Room Air Room Air Room Air Intake and Output 09/05/16 09/05/16 09/06/16 15:00 23:00 07:00 Intake Total 1000 ml 1000 ml Output Total 1000 ml 400 ml Balance 0 ml 600 ml FAHAD NASH MD Sep 06, 2016 11:23
[2016-09-06 11:27] LABS: CHOLESTEROL/HDL RATIO 2.3
[2016-09-06 11:42] VITALS: BP 114/61
--- NOTE | 2016-09-06 12:06 | PDOC3 ---
Discharge Summary Visit Information Date of Admission: Sep 05, 2016 Date of Discharge: Sep 06, 2016 Admitting Diagnosis Comment: 1. chest pain, atypical 2. CAD with previous STEMI occluded LAD with 2 RUY to LAD 3. PAF on amiodarone 4. hypertension 5. HLD 6. paranoid schizophrenia Final Diagnosis Problems Medical Problems: (1) Chest pain Status: Acute (2) COPD (chronic obstructive pulmonary disease) Status: Acute (3) HTN (hypertension) Status: Acute (4) Hypertension Status: Acute (5) Schizophrenia Status: Acute (6) Unstable angina Status: Acute Brief Hospital Course Allergies Allergies Coded Allergies Type Severity Reaction Last Updated Verified No Known Drug Allergies 01/07/14 No Vital Signs Vital Signs Date Time Temp Pulse Resp B/P Pulse Ox O2 Delivery O2 Flow Rate FiO2 09/06/16 11:42 97.6 57 19 114/61 92 Room Air 97.6 Lab Results Laboratory Tests Test 09/05/16 15:00 09/05/16 15:30 09/05/16 21:00 09/06/16 01:10 Urine Collection Type Void Urine Color Yellow Urine Clarity Clear Urine pH 7.0 Urine Specific [place] 1.025 Urine Protein Negativemg/dL (NEG-TRACE) Urine Glucose (UA) Negativemg/dL (NEG) Urine Ketones (Stick) Negativemg/dL (NEG) Urine Blood Negative (NEG) Urine Nitrite Negative (NEG) Urine Bilirubin Negative (NEG) Urine Urobilinogen Dipstick 1.0mg/dL (0.2 mg/dL) Urine Leukocyte Esterase Trace (NEG) Urine RBC Rare/HPF (0-2) Urine WBC Rare/HPF (0-4) Urine Squamous Epithelial Cells Occ/LPF Urine Bacteria 0/HPF (0-FEW) Urine Mucus Marked/LPF Urine Opiates Screen Neg (NEG) Urine Methadone Screen Neg (NEG) Urine Barbiturates Neg (NEG) Urine Phencyclidine Screen Neg (NEG) Urine Amphetamine/Methamphetamine Neg (NEG) Urine Benzodiazepines Screen Neg (NEG) Urine Cocaine Screen Neg (NEG) Urine Cannabinoids Screen Neg (NEG) Urine Ethyl Alcohol Neg (NEG) White Blood Count 13.1x10^3/uL (4.0-11.0) Red Blood Count 4.11x10^6/uL (4.30-5.70) Hemoglobin 9.6g/dL (13.0-17.5) Hematocrit 30.4% (39.0-53.0) Mean Corpuscular Volume 74fL (79-100) Mean Corpuscular Hemoglobin 24pg (25-35) Mean Corpuscular Hemoglobin Concent 32g/dL (31-37) Red Cell Distribution Width 17.9% (11.5-14.5) Platelet Count 296x10^3/uL (140-400) Neutrophils (%) (Auto) 82% (31-73) Lymphocytes (%) (Auto) 8% (24-48) Monocytes (%) (Auto) 10% (0-9) Eosinophils (%) (Auto) 0% (0-3) Basophils (%) (Auto) 0% (0-3) Neutrophils # (Auto) 10.7x10^3uL (1.8-7.7) Lymphocytes # (Auto) 1.0x10^3/uL (1.0-4.8) Monocytes # (Auto) 1.2x10^3/uL (0.0-1.1) Eosinophils # (Auto) 0.1x10^3/uL (0.0-0.7) Basophils # (Auto) 0.1x10^3/uL (0.0-0.2) Prothrombin Time 12.4SEC (11.7-14.0) Prothromb Time International Ratio 1.0 (0.8-1.1) Activated Partial Thromboplast Time 32SEC (24-38) Sodium Level 134mmol/L (136-145) Potassium Level 4.1mmol/L (3.5-5.1) Chloride Level 101mmol/L (98-107) Carbon Dioxide Level 23mmol/L (21-32) Anion Gap 10 (6-14) Blood Urea Nitrogen 13mg/dL (8-26) Creatinine 0.9mg/dL (0.7-1.3) Estimated GFR (Cockcroft-Gault) 86.1 BUN/Creatinine Ratio 14 (6-20) Glucose Level 106mg/dL (70-99) Calcium Level 8.4mg/dL (8.5-10.1) Total Bilirubin 0.3mg/dL (0.2-1.0) Aspartate Amino Transf (AST/SGOT) 14U/L (15-37) Alanine Aminotransferase (ALT/SGPT) 18U/L (16-63) Alkaline Phosphatase 75U/L (46-116) Creatine Kinase 97U/L (39-308) Creatine Kinase MB (Mass) 2.6ng/mL (0.0-3.6) Creatine Kinase MB Relative Index 2.7% (0-4) Troponin I Quantitative < 0.017ng/mL (0.000-0.055) < 0.017ng/mL (0.000-0.055) NX-Rjf-L-Type Natriuretic Peptide 374pg/mL (0-124) Total Protein 6.9g/dL (6.4-8.2) Albumin 3.2g/dL (3.4-5.0) Albumin/Globulin Ratio 0.9 (1.0-1.7) Lipase 193U/L (73-393) Heparin Anti-Xa Act, Unfractionated 0.15IU/mL (0.30-0.70) Test 09/06/16 04:15 09/06/16 04:25 09/06/16 06:45 Troponin I Quantitative < 0.017ng/mL (0.000-0.055) Triglycerides Level 15mg/dL (0-150) Cholesterol Level 110mg/dL (0-200) LDL Cholesterol, Calculated 59mg/dL (0-100) VLDL Cholesterol, Calculated 3mg/dL (0-40) HDL Cholesterol 48mg/dL (40-60) Cholesterol/HDL Ratio 2.3 Thyroid Stimulating Hormone (TSH) 1.825uIU/mL (0.358-3.74) White Blood Count 9.6x10^3/uL (4.0-11.0) Red Blood Count 3.69x10^6/uL (4.30-5.70) Hemoglobin 8.8g/dL (13.0-17.5) Hematocrit 27.7% (39.0-53.0) Mean Corpuscular Volume 75fL (79-100) Mean Corpuscular Hemoglobin 24pg (25-35) Mean Corpuscular Hemoglobin Concent 32g/dL (31-37) Red Cell Distribution Width 18.0% (11.5-14.5) Platelet Count 247x10^3/uL (140-400) Heparin Anti-Xa Act, Unfractionated 0.39IU/mL (0.30-0.70) Laboratory Tests Test 09/05/16 15:00 09/05/16 15:30 09/05/16 21:00 09/06/16 01:10 Urine Collection Type Void Urine Color Yellow Urine Clarity Clear Urine pH 7.0 Urine Specific [place] 1.025 Urine Protein Negativemg/dL (NEG-TRACE) Urine Glucose (UA) Negativemg/dL (NEG) Urine Ketones (Stick) Negativemg/dL (NEG) Urine Blood Negative (NEG) Urine Nitrite Negative (NEG) Urine Bilirubin Negative (NEG) Urine Urobilinogen Dipstick 1.0mg/dL (0.2 mg/dL) Urine Leukocyte Esterase Trace (NEG) Urine RBC Rare/HPF (0-2) Urine WBC Rare/HPF (0-4) Urine Squamous Epithelial Cells Occ/LPF Urine Bacteria 0/HPF (0-FEW) Urine Mucus Marked/LPF Urine Opiates Screen Neg (NEG) Urine Methadone Screen Neg (NEG) Urine Barbiturates Neg (NEG) Urine Phencyclidine Screen Neg (NEG) Urine Amphetamine/Methamphetamine Neg (NEG) Urine Benzodiazepines Screen Neg (NEG) Urine Cocaine Screen Neg (NEG) Urine Cannabinoids Screen Neg (NEG) Urine Ethyl Alcohol Neg (NEG) White Blood Count 13.1x10^3/uL (4.0-11.0) Red Blood Count 4.11x10^6/uL (4.30-5.70) Hemoglobin 9.6g/dL (13.0-17.5) Hematocrit 30.4% (39.0-53.0) Mean Corpuscular Volume 74fL (79-100) Mean Corpuscular Hemoglobin 24pg (25-35) Mean Corpuscular Hemoglobin Concent 32g/dL (31-37) Red Cell Distribution Width 17.9% (11.5-14.5) Platelet Count 296x10^3/uL (140-400) Neutrophils (%) (Auto) 82% (31-73) Lymphocytes (%) (Auto) 8% (24-48) Monocytes (%) (Auto) 10% (0-9) Eosinophils (%) (Auto) 0% (0-3) Basophils (%) (Auto) 0% (0-3) Neutrophils # (Auto) 10.7x10^3uL (1.8-7.7) Lymphocytes # (Auto) 1.0x10^3/uL (1.0-4.8) Monocytes # (Auto) 1.2x10^3/uL (0.0-1.1) Eosinophils # (Auto) 0.1x10^3/uL (0.0-0.7) Basophils # (Auto) 0.1x10^3/uL (0.0-0.2) Prothrombin Time 12.4SEC (11.7-14.0) Prothromb Time International Ratio 1.0 (0.8-1.1) Activated Partial Thromboplast Time 32SEC (24-38) Sodium Level 134mmol/L (136-145) Potassium Level 4.1mmol/L (3.5-5.1) Chloride Level 101mmol/L (98-107) Carbon Dioxide Level 23mmol/L (21-32) Anion Gap 10 (6-14) Blood Urea Nitrogen 13mg/dL (8-26) Creatinine 0.9mg/dL (0.7-1.3) Estimated GFR (Cockcroft-Gault) 86.1 BUN/Creatinine Ratio 14 (6-20) Glucose Level 106mg/dL (70-99) Calcium Level 8.4mg/dL (8.5-10.1) Total Bilirubin 0.3mg/dL (0.2-1.0) Aspartate Amino Transf (AST/SGOT) 14U/L (15-37) Alanine Aminotransferase (ALT/SGPT) 18U/L (16-63) Alkaline Phosphatase 75U/L (46-116) Creatine Kinase 97U/L (39-308) Creatine Kinase MB (Mass) 2.6ng/mL (0.0-3.6) Creatine Kinase MB Relative Index 2.7% (0-4) Troponin I Quantitative < 0.017ng/mL (0.000-0.055) < 0.017ng/mL (0.000-0.055) UU-Fcg-J-Type Natriuretic Peptide 374pg/mL (0-124) Total Protein 6.9g/dL (6.4-8.2) Albumin 3.2g/dL (3.4-5.0) Albumin/Globulin Ratio 0.9 (1.0-1.7) Lipase 193U/L (73-393) Heparin Anti-Xa Act, Unfractionated 0.15IU/mL (0.30-0.70) Test 09/06/16 04:15 09/06/16 04:25 09/06/16 06:45 Troponin I Quantitative < 0.017ng/mL (0.000-0.055) Triglycerides Level 15mg/dL (0-150) Cholesterol Level 110mg/dL (0-200) LDL Cholesterol, Calculated 59mg/dL (0-100) VLDL Cholesterol, Calculated 3mg/dL (0-40) HDL Cholesterol 48mg/dL (40-60) Cholesterol/HDL Ratio 2.3 Thyroid Stimulating Hormone (TSH) 1.825uIU/mL (0.358-3.74) White Blood Count 9.6x10^3/uL (4.0-11.0) Red Blood Count 3.69x10^6/uL (4.30-5.70) Hemoglobin 8.8g/dL (13.0-17.5) Hematocrit 27.7% (39.0-53.0) Mean Corpuscular Volume 75fL (79-100) Mean Corpuscular Hemoglobin 24pg (25-35) Mean Corpuscular Hemoglobin Concent 32g/dL (31-37) Red Cell Distribution Width 18.0% (11.5-14.5) Platelet Count 247x10^3/uL (140-400) Heparin Anti-Xa Act, Unfractionated 0.39IU/mL (0.30-0.70) Brief Hospital Course Mr. Colbert is a 61 old female hx of atrial fiob and paranoid schiz, admitted for CP and epig pain,. Echo and mPI ordered,. IF normal will send home , Dw CArds today,. 2 notes today Alex RN John Pt seen and examined Consults: cards Dispo: home Proc: echo and mPI Discharge Information Condition at Discharge: Improved, Stable Disposition/Orders: D/C to Home Scheduled Albuterol Sulfate (Ventolin Hfa Inhaler) 2 PUFF INH BID (Reported) Amiodarone Hcl (Amiodarone Hcl) 1 TAB PO DAILY (Reported) Atorvastatin Calcium (Lipitor) 20 MG PO HS (Reported) Clopidogrel Bisulfate (Clopidogrel) 1 TAB PO DAILY (Reported) Escitalopram Oxalate (Escitalopram Oxalate) 10 MG PO DAILY (Reported) Escitalopram Oxalate (Escitalopram Oxalate) 1 TAB PO DAILY (Reported) Fluticasone/Salmeterol (Advair 250-50 Diskus) 1 PUFF IH BID (Reported) Ipratropium/Albuterol Sulfate (Combivent Respimat Inhal) 1 INH IH BID (Reported ) Ipratropium/Albuterol Sulfate (Combivent Respimat Inhal) 2 INH IH BID (Reported ) Paliperidone (Invega) 12 MG PO DAILY (Reported) Potassium Chloride (Potassium Chloride) 20 MEQ PO TIDAC (Reported) Scheduled PRN Acetaminophen (Acetaminophen) 650 MG PO PRN Q4HRS PRN PRN PAIN (Reported) Polyethylene Glycol 3350 (Miralax) 1 PACKET PO PRN DAILY PRN PRN CONSTIPATION ( Reported) Miscellaneous Medications Aspirin/Calcium Carbonate/Mag (Aspirin Buffered 325 Mg Tab) 325 MG PO (Reported ) FAHAD NASH MD Sep 06, 2016 12:06
--- NOTE | 2016-09-06 12:15 | CARD ---
APPROVED REPORT EXAM: Two-dimensional and M-mode echocardiogram with Doppler, color Doppler with contrast. Other Information Quality : Average Rhythm : NSR INDICATION Cardiomyopathy Chest Pain Echo Enhancing Agent Indication: Endocardial border delineation Agent/Amount Used: Lumason 3mL 2D DIMENSIONS Left Atrium(2D)3.2 (1.6-4.0cm)IVSd1.2 (0.7-1.1cm) Aortic Root(2D)3.9 (2.0-3.7cm)LVDd5.7 (3.9-5.9cm) LVOT Diameter2.0 (1.8-2.4cm)PWd1.2 (0.7-1.1cm) LVDs5.0 (2.5-4.0cm)FS (%) 12.3 % SV41.4 ml Aortic Valve AoV Peak Shahriar.160.2cm/sAoV VTI36.6cm AO Peak GR.10.3mmHgLVOT Peak Shahriar.110.0cm/s AO Mean GR.5mmHgAVA (VMAX)2.23cm2 ANALI (VTI)2.00cm2 Mitral Valve MV E Tlplvplx68.0cm/sMV E Peak Gr.3mmHg MV DECEL [id number] A Myfrftsz53.5cm/s MV E Mean Gr.1mmHgMV GEA06ko E/A Ratio1.7MV A Iusqdtvn648fa MVA (PHT)5.87cm2 Tricuspid Valve TR P. Hikbcfly042wj/sRAP MGWBRRIG9skDd TR Peak Gr.16rlTmOLPI07lhRm Pulmonary Vein S1 Jqwewgpz21.3cm/sD2 Wujpaepp58.2cm/s PVa aqhyedvw626iily LEFT VENTRICLE The Left Ventricle is moderately dilated. There is borderline concentric left ventricular hypertrophy . Left ventricle systolic function is severely impaired. The Ejection Fraction is estimated at 25%. A kinesis mid-distal anterior and anteior septum. Dyskinesis of apical wall. Tissue Doppler imaging rev eals moderate left ventricular diastolic dysfunction. Possible but not definitive apical thrumbus. RIGHT VENTRICLE The right ventricle is normal size. The right ventricular systolic function is normal. ATRIA The left atrium size is normal. The right atrium size is normal. The interatrial septum is intact wit h no evidence for an atrial septal defect or patent foramen ovale as noted on 2-D or Doppler imaging. AORTIC VALVE The aortic valve is not well visualized. The aortic valve appears to be calcified but opens well. Dop pler and Color Flow revealed no significant aortic regurgitation. There is no significant aortic valv ular stenosis. MITRAL VALVE Mitral annular calcification is moderate. There is no mitral valve stenosis. Doppler and Color Flow r evealed mild mitral regurgitation. TRICUSPID VALVE The tricuspid valve is normal in structure. Doppler and Color Flow revealed mild tricuspid regurgitat ion. The PA pressure was estimated at 39 mmHg. There is no tricuspid valve stenosis. PULMONIC VALVE The pulmonic valve is not well visualized. Doppler and Color Flow revealed no pulmonic valvular regur gitation. There is no pulmonic valvular stenosis. GREAT VESSELS The aortic root is normal in size. Abnormal pulmonary vein flow suggestive of moderate to severe fair tolic function. The IVC is normal in size and collapses <50% with inspiration. PERICARDIAL EFFUSION There is no evidence of significant pericardial effusion. Critical Notification Date: 09/06/2016 Time: 11:56 Physician Name:Dr. Low Critical Value: Yes <Conclusion> The Left Ventricle is moderately dilated. Left ventricle systolic function is severely impaired. The Ejection Fraction is estimated at 25%. Akinesis mid-distal anterior and anteior septum. Dyskinesis of apical wall. Possible but not definitive apical thrumbus. There is no significant aortic valvular stenosis. Doppler and Color Flow revealed no significant aortic regurgitation. Doppler and Color Flow revealed mild mitral regurgitation. Doppler and Color Flow revealed mild tricuspid regurgitation. The PA pressure was estimated at 39 mmHg.
[2016-09-06] MEDS ORDERED: REGADENOSON 0.4 MG/5 ML DISP.SYRIN. IV ONE (12:30)
[2016-09-06] MEDS: ESCITALOPRAM 10 MG TABLET. PO SCH (14:45)
[2016-09-06] MEDS: ASPIRIN 325 MG TABLET PO SCH (14:46)
[2016-09-06] MEDS: CLOPIDOGREL BISULFATE 75 MG TABLET PO SCH (14:46)
[2016-09-06] MEDS: AMIODARONE HCL 200 MG TABLET. PO SCH (14:46)
[2016-09-06] MEDS: risperiDONE 1 MG TABLET. PO SCH ×2 (14:51→20:46)
[2016-09-06 15:00] VITALS: BP 130/60
--- NOTE | 2016-09-06 16:56 | RAD ---
APPROVED REPORT Test Type: Pharmacological Stress Nurse/Tech: Eugenie Chinchilla R.N. Test Indications: chestpain Cardiac History: copd,htn, ppm, cad w/ 2stents Medications: See Electronic Medical Record Medical History: See Electronic Medical Record Resting ECG: SR w/ inverted T waves in leads I-III, AVF,V2-V6. Resting Heart Rate: 63 bpm Resting Blood Pressure: 122/63mmHg Pretest Chest Pain: No chest pain Nurse/Tech Notes S1S2, lungs wheezing on rt side, deminished on left Consent: The procedure was explained to the patient in lay terms. Informed consent was witnessed. René eout was entered into [employer]. History and Stress Test performed by RT Zen (R) (N) Pharm. Details Pharmacologic stress testing was performed using 0.4mg per 5ml of regadenoson given intravenously ove r 7-10 seconds. Stress Symptoms dyspnea which resoved by end of recovery period, h/a started at the end of recovery period POST EXERCISE Reason for Termination: Infusion complete Max HR: 97 bpm Max Blood Pressure: 131/72mmHg Blood Pressure response to exercise: Normal blood pressure response during stress. Heart Rate response to exercise: wnl Chest Pain: No. Arrhythmia: No. ST Change: Yes. elevation noted in leads V3 and V4 INTERPRETATION Stress EKG Conclusion: No evidence of stress induced EKG changes. Imaging Protocol IMAGE PROTOCOL: Rest Tc-99m/stress Tc-99m 1 day Rest: Stress: Viability: Radiopharm.Tc99m LthlpggurNz39d Sestamibi Xqyk38vTd 33mCi Duration 15min. 10min. Img Date 09/06/2016 09/06/2016 Inj-Img Yxno65vme. 60min. Rest Admin Site:IV - Right ForearmAdministrator:RT Zen (R)(N) Stress Admin Site: IV - Right ForearmAdministrator: RT Zen (Tevin)(N) STRESS DATA End Diast. Vol.327.0mlAv. Heart Rate68.0bpm End Syst. Vol.224.0mlCO Index BSA0.0L/min Myocardial Gyuw012.0gEject. Xuiivarm44.0% Stress Rates Pk. Fill Rate1.35EDV/secLVtime Pk. Fill 132.32msec Pk. Empty Rate1.30ESV/secLVtime Pk. Leqyr573.93msec 1/3 Pk. Fill0.86EDV/sec Stress Scores Regional WT0.00Summed WT31.00 Regional WM0.00Summed WM34.00 LV Perfusion There is a large fixed severe perfusion defect in the mid to distal anterior wall, apex and mid to di stal inferior wall consistent with prior LAD territory infarct. Wall Motion There is severe hypokinesis to akinesis of the distal 2/3rd of the LV to the apex consistent with darcy or infarct. EF 30%. LV Perf. Quant 17 Seg. SSS40.00 17 Seg. SRS39.00 17 Seg. SDS3.00 Stress Defect Extent (% LAD)75.00Rest Defect Extent (% LAD)81.30Rev. Defect Extent (% LAD)0.00 Stress Defect Extent (% LCX) 38.80Rest Defect Extent (% LCX)31.30Rev. Defect Extent (% LCX)7.50 Stress Defect Extent (% RCA)64.40Rest Defect Extent (% RCA)73.30Rev. Defect Extent (% RCA)0.00 Stress Defect Extent (% CORBIN)65.70Rest Defect Extent (% CORBIN)68.90Rev. Defect Extent (% CORBIN)1.30 Other Information Quality:Average Risk Assessment: Moderate-High Risk Conclusion 1. No evidence of stress induced ischemic EKG changes. 2. Large fixed anterior wall, septal and apical/apical inferior defect consistent with prior infarct without reversibility 3. Severe LV dysfunction. EF 30% 4. Moderate to high risk study
[2016-09-06 19:50] VITALS: BP 127/62
[2016-09-06] MEDS ORDERED: ATORVASTATIN CALCIUM 20 MG TABLET PO SCH (21:00)
[2016-09-06 23:10] VITALS: BP 101/61
[2016-09-07 03:30] VITALS: BP 112/64
[2016-09-07 07:14] VITALS: BP 131/71
[2016-09-07] MEDS: BUDESONIDE 0.5 MG/2 ML NEBU. NEB SCH (07:34)
[2016-09-07] MEDS: IPRATRPIUM/ALBUTEROL 0.5/2.5MG 3 ML NEBU. NEB SCH (07:34)
[2016-09-07] MEDS ORDERED: POTASSIUM CHLORIDE 20 MEQ TABLET.ER. PO ONE ×2 (09:00)
[2016-09-07] MEDS ORDERED: SULFUR HEXAFLUORIDE MICROSPHR 25 MG VIAL. IVP ONE (09:28)
--- NOTE | 2016-09-07 09:48 | ACF ---
Admission Forms Criteria CARDIOLOGY GRG Clinical Indications for Admission to Inpatient Care ( Place 'X' for any and all applicable criteria): Hospital admission is needed for appropriate care of the patient because of ANY ONE of the following (1): [ ] I. Hemodynamic instability as indicated by ALL of the following (1)(2)(3) (4)(5) [ ]a) Vital signs or other findings not as expected for chronic patient condition or baseline [ ]b) Instability indicated by ANY ONE of the following: [ ]i) Hypotension [ ]ii) Symptomatic Tachycardia unresponsive to treatment ( e.g., analgesia, fluids, sedation as indicated) [ ]iii) Inadequate perfusion indicated by ANY ONE of the following: [ ] 1) Lactic acidosis (> 2 mmol/L) [ ] 2) New abnormal capillary refill (> 3 seconds) [ ] 3) Reduced urine output [ ] 4) New altered mental status [ ]iv) Orthostatic vital sign changes unresponsive to treatment (e.g., fluids) [ ]v) IV inotropic or vasopressor medication required to maintain adequate blood pressure or perfusion [ ] II. Severe heart failure as indicated by ANY ONE of the following(17)(18) [ ]a) Respiratory distress [ ]b) Hypotension [ ]c) Anasarca (refractory to outpatient therapy) [ ]d) Cardiac arrhythmias of immediate concern [ ]e) Myocardial ischemia [ ] III. Cardiac arrhythmias or findings of immediate concern indicated by ANY ONE of the following (19)(20): [ ] a) Heart rhythms that are inherently dangerous or unstable indicated by ANY ONE of the following (21)(22)(23): [ ] i) Resuscitated ventricular fibrillation or cardiac arrest [ ] ii) Ventricular escape rhythm [ ] iii) Sustained ventricular tachycardia (30 seconds or more of ventricular rhythm at greater than 100 beats per minute) [ ] iv) Nonsustained ventricular tachycardia and ANY ONE of the following: [ ] 1) Suspected cardiac ischemia as cause or consequence of ventricular tachycardia [ ] 2) In setting of acute myocarditis [ ] b) Unstable cardiac conduction defects indicated by ANY ONE of the following(23)(24)(25) [ ] i) Type II second-degree atrioventricular block [ ]ii) Third-degree atrioventricular block [ ]iii) New-onset left bundle branch block with suspected myocardial ischemia [ ]c) Any heart rhythm and ANY ONE of the following (21)(22)(26)(27) (28) [ ] i) Continuous long-term ECG monitoring needed (e.g., initiation of drug requiring monitoring for more than 24 hours) [ ] ii) Patient has automatic implanted cardioverter defibrillator that is repeatedly firing, malfunctioning, or in need of immediate adjustment of settings beyond the scope of ambulatory or observation care [ ]d) Heart rhythms of concern due to ANY ONE of the following: [ ] i) Hypotension [ ] ii) Respiratory distress [ ] iii) Association with other significant symptoms (e.g., bradycardia with syncope or ongoing dizziness, supraventricular tachycardia with chest pain (14)(15)(17) [ ] IV. Monitoring for cardiac contusion beyond the scope of observation care needed [A](30)(31)(32) [ ] V. Surgical or device complication (e.g., valve replacement complication , pacemaker dysfunction) (35)(41)(44)(45)(46) [ ] . Inpatient palliative care needed. [B](49) Also use Inpatient Palliative Care Criteria [ ] VII. Nonbacterial thrombotic (marantic) endocarditis (36)(43)(47)(48) [X] VIII. Cardiology condition, symptom, or finding for which emergency and observation care has failed or are not considered appropriate. [ ] IX. Acute valvular disease requiring inpatient as indicated by ANY ONE of the following (41) [ ]a) Acute valvular regurgitation (42) [ ]b) Noninfectious valvulitis (43) [ ]c) Obstructive valve thrombosis [ ]d) Paravalvular leak [ ]e) Other significant valvular disorder remaining after emergency or observation level of care (as appropriate) [ ]X. Pericardial disease requiring inpatient treatment as indicated by ANY ONE of the following (33)(34)(35)(36)(37) [ ]a) Suspected tamponade (38)(39)(40) [ ]b) Hemopericardium [ ]c) Other significant pericardial disorder remaining after emergency or observation level of care (as appropriate) [ ] XI. Cardiac ischemia beyond scope of emergency and observation care. [ ] XII. Hypertension requiring inpatient treatment as indicated by ANY ONE of the following (6)(7)(8) [ ]a) SBP greater than 220 mm Hg or DBP greater than 120 mmHg despite treatment [ ]b) SBP greater than 140 mm Hg or DBP greater than 100 mm Hg with evidence of acute end organ damage as indicated by ANY ONE of the following [ ] i) Encephalopathy [ ] ii) Acute renal failure as indicated by new onset of ANY ONE of the following (9)(10)(11)(12)(13) [ ]1) 3-fold rise in serum creatinine from baseline [ ]2) Serum creatinine greater than 4 mg/dL ( 354 micromoles/L) with acute rise greater than 0.5 mg/dL (44.2 micromoles/L) [ ]3) Reduction of more than 75% in estimated glomerular filtration rate from baseline [ ]4) Estimated glomerular filtration rate less than 35 mL/min/1.73m2 (0.59 mL/sec/1.73m2) in child up to 18 years of age [ ]5) Cessation of urine output indicated by ALL of the following [ ]A. Adequate volume status [ ]B. Inadequate urine output as indicated by ANY ONE of the following [ ]a. Urine output less than 0.3 mL/kg/hr for 24 hours [ ]b. Anuria (urine output less than 0.1 mL/kg/hr) for 12 hours [ ] iii) Aortic dissection [ ] iv) Myocardial Ischemia [ ] v) Left ventricular heart failure [ ]vi) Retinal Hemorrhage [ ]vii) Other significant finding [ ]c) Hypertension in child requiring inpatient treatment as indicated by ALL of the following(14)(15)(16) [ ] i) Outpatient treatment not effective, not available, or not appropriate [ ]ii) SBP or DBP greater than 95th percentile for age [ ]iii) Evidence of acute end organ damage as indicated by ANY ONE of the following [ ]1) Altered mental status [ ]2) Acute renal failure as indicated by new onset of ANY ONE of the following(9)(10)(11)(12)(13) [ ]A. 3-fold rise in serum creatinine from baseline [ ]B. Serum creatinine greater than 4 mg/dL (354 micromoles/L) with acute rise greater than 0.5 mg/dL (44.2 micromoles/L) [ ]C. Reduction of more than 75% in estimated glomerular filtration rate from baseline [ ]D. Estimated glomerular filtration rate less than 35 mL/min/1.73m2 (0.59 mL/sec/1.73m2) in child up to 18 years of age [ ]E. Cessation of urine output indicated by ALL of the following [ ]a. Adequate volume status [ ]b. Inadequate urine output as indicated by ANY ONE of the following [ ]i) Urine output less than 0.3 mL/kg/hr for 24 hours [ ]ii) Anuria ( urine output less than 0.1 mL/kg/hr) for 12 hours [ ]3) Severe headache [ ]4) Visual disturbance [ ]5) Retinal hemorrhage [ ]6) Other significant finding [ ]XIII. Complications of transplanted heart indicated by ANY ONE of the following(61): [ ]a) Acute graft rejection requiring inpatient management (eg, intravenous immunosuppression)(62)(63) [ ]b) Acute graft heart failure indicated by ANY ONE of the following(64): [ ]i) Hemodynamic instability [ ]ii) Cardiac arrhythmias of immediate concern [ ]iii) Pulmonary edema that is very severe (eg, mechanical ventilation needed, imminent or likely, need for 100% oxygen to keep oxygen saturation above 90%) [ ]iv) Pulmonary edema that is persistent as indicated by ALL of the following: [ ]1) New need for oxygen therapy to keep oxygen saturation above 90% (or increased FiO2 need from baseline) [ ]2) Has not improved sufficiently with emergency department or observation care IV diuretics or other heart failure treatments[E] [ ]v) Altered mental status that is severe or persistent [ ]vi) Increased creatinine (new on laboratory test) with reduction of more than 50% in estimated glomerular filtration rate from baseline [ ]vii) Progressively (ongoing) rising creatinine (known from past laboratory test) with reduction of more than 25% in estimated glomerular filtration rate from baseline [ ]viii) Acute renal failure [ ]ix) Acute peripheral ischemia (eg, examination shows pulseless, cool, mottled, or cyanotic extremity) [ ]x) Pulmonary artery catheter monitoring needed [ ]xi) Other sign or symptom of heart failure requiring inpatient treatment (ie, too severe or not responsive to outpatient and observation care treatment) [ ]c) Infection requiring inpatient management (eg, Hemodynamic instability, need for intravenous antimicrobial treatment)(66)(67)(68)(69)(70) [ ]d) Cardiac allograft vasculopathy requiring inpatient management ( eg evidence of cardiac ischemia)(71) [ ]e) Other complication of transplanted heart (eg, stroke, severe pulmonary hypertension, severe valvular dysfunction) requiring inpatient management(72) The original [facility] content created by [facility] has been revised. The portions of the content which have been revised are identified through the use of italic text or in bold, and [facility] has neither reviewed nor approved the modified material. All other unmodified content is copyright [facility]. Please see references footnoted in the original [facility] edition 2016 Admission Criteria Met?: Yes FELIZ SANDOVAL Sep 07, 2016 09:48
[2016-09-07 10:09] VITALS: BP 124/63
[2016-09-07] MEDS: ASPIRIN 325 MG TABLET PO SCH (10:12)
[2016-09-07] MEDS: ESCITALOPRAM 10 MG TABLET. PO SCH (10:12)
[2016-09-07 10:13] VITALS: BP 124/63
[2016-09-07] MEDS: CLOPIDOGREL BISULFATE 75 MG TABLET PO SCH (10:13)
[2016-09-07] MEDS: AMIODARONE HCL 200 MG TABLET. PO SCH (10:13)
[2016-09-07] MEDS: POTASSIUM CHLORIDE 20 MEQ TABLET.ER. PO SCH ×2 (10:14→11:51)
[2016-09-07] MEDS: risperiDONE 1 MG TABLET. PO SCH (10:14)
--- NOTE | 2016-09-07 10:24 | CARD ---
APPROVED REPORT EXAM: LIMITED Two-dimensional echocardiogram with contrast. Other Information Quality : Average Rhythm : NSR INDICATION R/O apical thrombus Echo Enhancing Agent Indication: Endocardial border delineation Agent/Amount Used: Lumason 3mL LEFT VENTRICLE The Left Ventricle is moderately dilated. There is borderline concentric left ventricular hypertrophy . Left ventricle systolic function is severely impaired. The Ejection Fraction is 25%. No left ventri tammy thrombus noted on this study. GREAT VESSELS Not evaluated PERICARDIAL EFFUSION There is no evidence of significant pericardial effusion. Critical Notification Critical Value: No <Conclusion> No apical LV thrombus. Severe LV dysfunction. Limited echo images for thrombus evaluation only.
[2016-09-07] MEDS ORDERED: ASPI81TA2 PO (12:18)
--- NOTE | 2016-09-07 12:20 | PDOC ---
Provider Note Provider Note addendum to dc summ Pt stayed overnight bec of abN MPI: Conclusion 1. No evidence of stress induced ischemic EKG changes. 2. Large fixed anterior wall, septal and apical/apical inferior defect consistent with prior infarct without reversibility 3. Severe LV dysfunction. EF 30% 4. Moderate to high risk study After discussion with cards, ok to dc to [facility] today STop amio, plavix and do ASA 81 instead, Stents hare at least a yr old Pt seen and examined Dw RN at bedside FAHAD NASH MD Sep 07, 2016 12:19
--- NOTE | 2016-09-07 12:51 | PDOC ---
CARDIO Progress Notes Date and Time Date of Service 09/07/2016 Time of Evaluation 1238 Subjective Subjective: No Chest Pain, No shortness of breath, No Palpitations, No Dizziness Vitals Vitals Vital Signs Date Time Temp Pulse Resp B/P Pulse Ox O2 Delivery O2 Flow Rate FiO2 09/07/16 10:13 67 124/63 09/07/16 10:09 98.0 18 96 Room Air 98.0 Weight Weight [ ] Input and Output Intake and Output Intake and Output 09/07/16 07:00 Intake Total 3368 ml Output Total 2500 ml Balance 868 ml Intake Oral 690 ml IV Total 2440 ml Other 238 ml Output Urine Total 2500 ml # Voids 2 Laboratory Labs Laboratory Tests Test 09/06/16 13:10 09/07/16 06:50 Heparin Anti-Xa Act, Unfractionated 0.38IU/mL (0.30-0.70) 0.25IU/mL (0.30-0.70) Microbiology Micro Microbiology 09/05/16 Urine Culture - Final, Complete 09/05/16 Urine Culture Result 1 (STACY) - Final, Complete Physical Exam HEENT: Neck Supple W Full Motion Chest: Symmetric LUNGS: Clear to Auscultation Heart: S1S2, RRR, no murmurs, other (tele: ) Abdomen: Soft N/T Extremities: No Edema Neurology: alert, follow commands Assessment Assessment 1. chest pain, atypical MPI with fixed defect consistent with previous NH 2. CAD with previous STEMI occluded LAD with 2 RUY to LAD - 2013 fixed defect on MPI will stop Plavix as stents placed > 2 years no beta-blockers as too bradycardic - in the 40s 3. PAF no evidence of PAF on tele with COPD and lack of PAF - stop amiodarone re-evaluate in office ? of apical thrombus on initial echo - none seen on follow up pictures 4. hypertension BP well controlled without use of medications 5. HLD LDLs = 59 on statin therapy 6. paranoid schizophrenia per primary service 7. tobacco abuse cessation recommended Agreeable with discharge f/u in office in about 4 weeks XANDER SOLOMON APRN Sep 07, 2016 12:51
[2016-09-08] MEDS ORDERED: ASPIRIN ENTERIC COATED 81 MG TABLET.DR. PO SCH ×2 (08:00)
[2016-09-08 17:19] LABS: AMIODARONE 1.7 ug/mL (1.0-2.5)
== END 2016-09-07 14:15 | DRG 303 ==
LOC: ER 14:51 → 2 NORTH 16:20
PROVIDERS: ADMIT Internal Medicine; ATTEND Internal Medicine
DX: I25.111 Atherosclerotic heart disease of native coronary artery with angina pectoris with documented spasm (principal); F20.0 Paranoid schizophrenia; F17.210 Nicotine dependence, cigarettes, uncomplicated; E78.5 Hyperlipidemia, unspecified; E78.00 Pure hypercholesterolemia, unspecified; I34.0 Nonrheumatic mitral (valve) insufficiency; J44.9 Chronic obstructive pulmonary disease, unspecified; I48.0 Paroxysmal atrial fibrillation; K21.9 Gastro-esophageal reflux disease without esophagitis; I25.5 Ischemic cardiomyopathy; F32.9 Major depressive disorder, single episode, unspecified; I10 Essential (primary) hypertension; K59.00 Constipation, unspecified; I25.2 Old myocardial infarction; Z82.49 Family history of ischemic heart disease and other diseases of the circulatory system; Z95.5 Presence of coronary angioplasty implant and graft
CPT/HCPCS: 99285; C8924; C8929; 36415; 71010; 78452; 80053; 80061; 80299; 81001; 82553; 83690; 83880; 84443; 84484; 85027; 85520; 85610; 85730; 87086; 93005; 93017; 94250; 94640; 94760; 96361; 96374; 96375; 96376; A9500; G0481; J2785; J7030; J7620; Q9950

== ENCOUNTER → 2018-01-30 | Outpatient (CLI) | payer MEDICAID ==
[2018-01-07 10:52] VITALS: BP 137/70
[~2018-01-30] MED LIST changes: +ACET650S19 PO; +AMIO200T4 PO; +AMOX1TAB11 PO; +ASPI-630 PO; +ASPI325T70 PO; +ATOR20TA PO; +CLOP75TA PO; -ESCI10TA PO; +ESCITALOPRAM OX10 MG PO; +FLUT1DIS3 IH; +METO25TA4 PO; +POLY17PO29 PO; +POTA20TA82 PO
--- NOTE | 2018-01-30 13:33 | CARD ---
MR#: [id number] Date of Study: 01/30/2018 Ordering Physician: DERRICK VIDAL, Referring Physician: DERRICK VIDAL, Tech: Isela Vergara RAY APPROVED REPORT EXAM: Two-dimensional and M-mode echocardiogram with Doppler and color Doppler. Other Information Quality : Technically Limited Technically limited study due to body habitus and smoking. INDICATION Ischemic Cardiomypoathy RISK FACTORS Smoking 2D DIMENSIONS Left Atrium(2D)3.3 (1.6-4.0cm)IVSd0.7 (0.7-1.1cm) Aortic Root(2D)2.3 (2.0-3.7cm)LVDd6.0 (3.9-5.9cm) LVOT Diameter2.0 (1.8-2.4cm)PWd0.7 (0.7-1.1cm) LVDs5.0 (2.5-4.0cm)FS (%) 7.0 % SV59.9 mlLVEF(%)15.0 (>50%) Aortic Valve AoV Peak Shahriar.108.9cm/sAoV VTI20.2cm AO Peak GR.4.7mmHgLVOT Peak Shahriar.109.9cm/s AO Mean GR.2mmHgAVA (VMAX)3.26cm2 ANALI (VTI)3.20cm2 Mitral Valve MV E Yskkhvcq73.9cm/sMV DECEL [id number] MV A Vioodxpc93.3cm/sE/A Ratio1.0 LEFT VENTRICLE The Left Ventricle is mildly dilated. There is normal left ventricular wall thickness. Left ventricle systolic function is severely impaired. The Ejection Fraction is 10-15%. There is severe global hypo kinesis of the left ventricle. There is akinesis in the apex, mid to distal anterior wall, mid to dis monalisa inferior wall. Transmitral Doppler flow pattern is Grade I-abnormal relaxation pattern. RIGHT VENTRICLE The right ventricle is normal size. The right ventricular systolic function is normal. ATRIA The left atrium size is normal. The right atrium size is normal. The interatrial septum is intact wit h no evidence for an atrial septal defect or patent foramen ovale as noted on 2-D or Doppler imaging. AORTIC VALVE The aortic valve is not well visualized. Doppler and Color Flow revealed no significant aortic regurg itation. There is no significant aortic valvular stenosis. MITRAL VALVE The mitral valve is calcified but opens well. There is no evidence of mitral valve prolapse. There is no mitral valve stenosis. Doppler and Color-flow revealed trace to mild mitral regurgitation. TRICUSPID VALVE The tricuspid valve is normal in structure and function. Doppler and Color Flow revealed no tricuspid valve regurgitation noted. There is no tricuspid valve stenosis. PULMONIC VALVE The pulmonic valve is not well visualized. GREAT VESSELS The aortic root is normal in size. The ascending aorta is not well seen. The IVC is normal in size an d collapses >50% with inspiration. PERICARDIAL EFFUSION There is no evidence of significant pericardial effusion. Critical Notification Critical Value: No <Conclusion> Left ventricle systolic function is severely impaired. The Ejection Fraction is 10-15%. There is severe global hypokinesis of the left ventricle. There is akinesis in the apex, mid to dista l anterior wall, mid to distal inferior wall. The aortic valve is not well visualized. Signed by : Javier Low, Electronically Approved : 01/30/2018 13:33:02
== END | disposition home or self-care (01) ==
LOC: ECHO 11:45
PROVIDERS: ATTEND Internal Medicine Cardiovascular Disease
DX: I34.0 Nonrheumatic mitral (valve) insufficiency (principal); I25.2 Old myocardial infarction; I10 Essential (primary) hypertension; E78.5 Hyperlipidemia, unspecified; E78.00 Pure hypercholesterolemia, unspecified; J44.9 Chronic obstructive pulmonary disease, unspecified; I48.0 Paroxysmal atrial fibrillation; I25.10 Atherosclerotic heart disease of native coronary artery without angina pectoris; K21.9 Gastro-esophageal reflux disease without esophagitis; Z79.899 Other long term (current) drug therapy; Z82.49 Family history of ischemic heart disease and other diseases of the circulatory system; Z83.3 Family history of diabetes mellitus
CPT/HCPCS: 93306

== ENCOUNTER → 2018-06-30 | Outpatient (CLI) | payer MEDICAID ==
[2018-01-07 10:52] VITALS: BP 137/70
[~2018-06-30] MED LIST changes: +ACET650S PO; -ACET650S19 PO
--- NOTE | 2018-06-30 11:28 | CARD ---
MR#: [id number] Date of Study: 06/30/2018 Ordering Physician: DERRICK VIDAL, Referring Physician: DERRICK VIDAL, Tech: Flori Mccloud APPROVED REPORT EXAM: Two-dimensional and M-mode echocardiogram with Doppler and color Doppler. Other Information Quality : FairHR: 42bpm INDICATION COPD RISK FACTORS Smoking 2D DIMENSIONS RVDd3.1 (2.9-3.5cm)IVSd1.2 (0.7-1.1cm) Aortic Root(2D)3.2 (2.0-3.7cm)LVDd5.2 (3.9-5.9cm) LVOT Diameter2.1 (1.8-2.4cm)PWd1.2 (0.7-1.1cm) LVDs3.9 (2.5-4.0cm)FS (%) 24.7 % SV63.5 ml Aortic Valve AoV Peak Shahriar.134.9cm/sAoV VTI23.8cm AO Peak GR.7.3mmHgLVOT Peak Shahriar.81.6cm/s LVOT VTI 17.07cmAO Mean GR.3mmHg ANALI (VMAX)1.00ma8QWD (VTI)2.57cm2 Mitral Valve MV E Daqeazuj39.2cm/sMV DECEL [id number] MV A Nidhqwck17.9cm/sMV BAH36kz E/A Ratio1.2MVA (PHT)3.52cm2 TDI E/Lateral E'8.3E/Medial E'9.3 Tricuspid Valve TR P. Mqvlmvjn302xr/sRAP AWDYXLOU2svRg TR Peak Gr.57qhEsXLZE92vmPy Pulmonary Vein S1 Bdcyqbkg74.4cm/sD2 Jccnmkup72.1cm/s PVa [id number] LEFT VENTRICLE The Left Ventricle is borderline dilated. There is borderline concentric left ventricular hypertrophy . The Ejection Fraction is estimated at 15%. Akinesis of mid to distal anterior wall, entire apical w all and mid to distal inferior wall. Transmitral Doppler flow pattern is Grade II-pseudonormal fillin g dynamics. RIGHT VENTRICLE The right ventricle is normal size. There is normal right ventricular wall thickness. The right ventr icular systolic function is normal. ATRIA The left atrium size is normal. The right atrium size is normal. The interatrial septum is intact wit h no evidence for an atrial septal defect or patent foramen ovale as noted on 2-D or Doppler imaging. AORTIC VALVE The aortic valve is not well visualized. Doppler and Color Flow revealed no significant aortic regurg itation. There is no significant aortic valvular stenosis. MITRAL VALVE The mitral valve is thickened but opens well. There is no evidence of mitral valve prolapse. There is no mitral valve stenosis. Doppler and Color-flow revealed trace mitral regurgitation. TRICUSPID VALVE The tricuspid valve is normal in structure and function. Doppler and Color Flow revealed no tricuspid valve regurgitation noted. There is no tricuspid valve stenosis. PULMONIC VALVE The pulmonic valve is not well visualized. Doppler and Color Flow revealed no pulmonic valvular regur gitation. GREAT VESSELS The aortic root is normal in size. The IVC was not visualized. PERICARDIAL EFFUSION There is no evidence of significant pericardial effusion. Critical Notification Critical Value: No <Conclusion> Akinesis of mid to distal anterior wall, entire apical wall and mid to distal inferior wall. The Ejection Fraction is estimated at 15%. Transmitral Doppler flow pattern is Grade II-pseudonormal filling dynamics. Doppler and Color-flow revealed trace mitral regurgitation. There is no evidence of significant pericardial effusion. Signed by : Wyatt Mathis, Electronically Approved : 06/30/2018 11:26:42
== END | disposition home or self-care (01) ==
LOC: ECHO 09:19
PROVIDERS: ATTEND Internal Medicine Cardiovascular Disease
DX: I42.9 Cardiomyopathy, unspecified (principal); I51.89 Other ill-defined heart diseases; J44.9 Chronic obstructive pulmonary disease, unspecified; F17.200 Nicotine dependence, unspecified, uncomplicated
CPT/HCPCS: 93306

== ENCOUNTER → 2018-09-15 | Outpatient (CLI) | payer MEDICAID ==
[2018-01-07 10:52] VITALS: BP 137/70
--- NOTE | 2018-09-15 10:52 | CARD ---
MR#: [id number] Date of Study: 09/15/2018 Ordering Physician: DERRICK MELENDEZ, Referring Physician: DERRICK MELENDEZ, Tech: Marley Alonso [facility] APPROVED REPORT EXAM: Two-dimensional and M-mode echocardiogram with Doppler and color Doppler. Other Information Quality : Technically LimitedHR: 45bpm Rhythm : BradycardiaTechnically limited study due to smoking. INDICATION CAD 2D DIMENSIONS RVDd2.9 (2.9-3.5cm)Left Atrium(2D)3.5 (1.6-4.0cm) IVSd1.2 (0.7-1.1cm)Aortic Root(2D)3.5 (2.0-3.7cm) LVDd6.0 (3.9-5.9cm)LVOT Diameter2.0 (1.8-2.4cm) PWd1.0 (0.7-1.1cm)LVDs5.5 (2.5-4.0cm) FS (%) 8.9 %SV34.9 ml M-Mode DIMENSIONS Left Atrium(MM)3.06 (2.5-4.0cm)Aortic Root3.54 (2.2-3.7cm) Aortic Valve AoV Peak Shahriar.112.0cm/sAoV VTI19.9cm AO Peak GR.5.0mmHgLVOT Peak Shahriar.93.7cm/s AO Mean GR.2mmHgAVA (VMAX)2.73cm2 ANALI (VTI)2.60cm2 Mitral Valve MV E Fipynorn34.3cm/sMV E Peak Gr.2mmHg MV DECEL [id number] A Efjbvoxw41.7cm/s MV E Mean Gr.0mmHgE/A Ratio1.2 Pulmonary Valve PV Peak Mqxyoxnt36.4cm/s LEFT VENTRICLE The Left Ventricle is mild to moderately dilated. There is normal left ventricular wall thickness. Th e systolic function is severely impaired. The Ejection Fraction is estimated at 20%. There is severe global hypokinesis of the left ventricle most pronounced in the septal and apical regions. Transmitra l Doppler flow pattern is abnormal. RIGHT VENTRICLE The right ventricle is normal size. There is normal right ventricular wall thickness. Systolic functi on is mildly reduced. ATRIA The left atrium size is normal. The right atrium size is normal. The interatrial septum is intact wit h no evidence for an atrial septal defect or patent foramen ovale as noted on 2-D or Doppler imaging. AORTIC VALVE The aortic valve is normal in structure and function. The aortic valve is trileaflet. Doppler and Col or Flow revealed no significant aortic regurgitation. There is no significant aortic valvular stenosi s. MITRAL VALVE The mitral valve is normal in structure and function. There is no evidence of mitral valve prolapse. There is no mitral valve stenosis. Doppler and Color-flow revealed trace to mild mitral regurgitation . TRICUSPID VALVE The tricuspid valve is normal in structure and function. Doppler and Color Flow revealed trace tricus pid valve regurgitation. There is no tricuspid valve prolapse or vegetation. PULMONIC VALVE The pulmonic valve is not well visualized. GREAT VESSELS The aortic root is normal in size. The ascending aorta is normal in size. The IVC is normal in size a nd collapses >50% with inspiration. PERICARDIAL EFFUSION There is no evidence of significant pericardial effusion. Critical Notification Critical Value: No <Conclusion> The Left Ventricle is mild to moderately dilated. The systolic function is severely impaired. The Ejection Fraction is estimated at 20%. There is severe global hypokinesis of the left ventricle most pronounced in the septal and apical reg ions. There is no significant aortic valvular stenosis. Doppler and Color Flow revealed no significant aortic regurgitation. Doppler and Color-flow revealed trace to mild mitral regurgitation. Doppler and Color Flow revealed trace tricuspid valve regurgitation. Signed by : Derrick Melendez MD Electronically Approved : 09/15/2018 10:52:48
== END | disposition home or self-care (01) ==
LOC: ECHO 09:07
PROVIDERS: ATTEND Internal Medicine Cardiovascular Disease
DX: I25.10 Atherosclerotic heart disease of native coronary artery without angina pectoris (principal); R00.1 Bradycardia, unspecified; F17.200 Nicotine dependence, unspecified, uncomplicated
CPT/HCPCS: 93306